=== PATIENT | male | born 1980 | race Caucasian/White ===

== ENCOUNTER 2016-09-30 14:09 | Inpatient (IN) | payer SELFPAY ==
[~2016-09-30] VITALS: Ht 170.2 cm; Wt 78.8 kg
[2016-09-30] VITALS (8 sets, daily range): BP systolic 103–143; BP diastolic 66–81; Ht 170.2 cm; Wt 78.8 kg
[2016-09-30 14:39] LABS: BASOPHILS 0.2 % (0-2); EOSINOPHILS 0.2 % (0-7); HEMOGLOBIN 15.1 g/dL (13.5-17.5); IMMATURE GRANULOCYTES 0.4 % (0-5); LYMPHOCYTES 19.3 % (15-50); MCH 32.8 pg (26.0-34.0); MCHC 35.1 g/dL (31.0-37.0); MCV 93.3 fL (80.0-100.0); MEAN PLATELET VOLUME 10.8 fL (7.4-10.4); MONOCYTES 8.6 % (2-11); NEUTROPHILS 71.3 % (40-80); PLATELET COUNT 185 10x3/uL (130-400); RBC 4.61 10x6/uL (4.20-6.10); RDW 12.5 % (11.5-14.5); WBC 9.9 10x3/uL (4.8-10.8)
[2016-09-30 15:37] LABS: APTT 22.6 SECONDS (22.8-39.4); INR 1.07 (0.85-1.17); PROTIME 13.8 SECONDS (11.6-15.0)
[2016-09-30 15:55] LABS: ALBUMIN 3.6 g/dL (3.4-5.0); ANION GAP 14.6 mmol/L (8-16); BILIRUBIN - TOTAL 0.52 mg/dL (0.2-1.3); CALCIUM 8.6 mg/dL (8.5-10.1); CARBON DIOXIDE 24.7 mmol/L (21.0-32.0); CREATININE - SERUM 1.2 mg/dL (0.6-1.3); POTASSIUM - SERUM 4.3 mmol/L (3.5-5.1); PROTEIN - SERUM 7.1 g/dL (6.4-8.2)
--- NOTE | 2016-09-30 17:22 | NUR ---
1722 LAB HERE TO DRAW BLOOD.
[2016-09-30 17:31] LABS: HEMATOCRIT 40.2 % (42.0-54.0); HEMOGLOBIN 14.1 g/dL (13.5-17.5)
--- NOTE | 2016-09-30 17:58 | NUR ---
ADMIT FROM GI LAB. ASSESSMENT PER FLOWSHEET. VOICES C/O PAIN TO ABDOMEN. 06/26.
--- NOTE | 2016-09-30 19:30 | NUR ---
REPORT REC'D AND CARE REC'D, PT REC'D ON ROOM AIR AWAKE, ALERT, ORIENTED X 4 WITH AT BS, LEFT A/C PIV WITH NS @ 30CC/HR AND PROTONIX @ 10CC/HR, PT REPORTS NO PAIN BUT GENERALIZED FEELING OF NOT FEELING GOOD, CM-SR, BP STABLE, MAEE, ABD SOFT, BS HYPOACTIVE, PT DENIES NEEDS AT THIS TIME, PPP, SR UP X 2, BED IN LOW POSITION, CALL LIGHT IN REACH.
[2016-09-30] MEDS ORDERED: ZANTAC150 MG PO (20:03)
--- NOTE | 2016-09-30 20:30 | NUR ---
ICE WATER AND JELLO PROVIDED ON REQUEST, PT DENIES NAUSEA, COOL CLOTH PROVIDED FOR COMPLAINTS OF BEING "HOT", DENIES FURTHER NEEDS.
--- NOTE | 2016-09-30 21:00 | NUR ---
EVENING MEDS GIVEN, DENIES PAIN OR NEEDS, CALL LIGHT IN REACH.
--- NOTE | 2016-09-30 22:30 | NUR ---
PT ASSISTED UP TO BATHROOM, INSTRUCTED TO CALL FOR ASSISTANCE WHEN FINISHED.
--- NOTE | 2016-09-30 22:45 | NUR ---
PT HAD DARK TARRY STOOL, ASSISTED BACK TO BED AND MONITOR RECONNECTED, PT DENIES PAIN OR NAUSEA.
[2016-09-30 23:21] LABS: HEMATOCRIT 38.4 % (42.0-54.0); HEMOGLOBIN 13.2 g/dL (13.5-17.5)
[2016-10-01] VITALS (15 sets, daily range): BP systolic 99–126; BP diastolic 46–77
--- NOTE | 2016-10-01 | NUR ---
REASSESSMENT COMPELTED, NO CHANGES FROM PREVIOUS STATUS, PT RESTING IN BED ON CELL PHONE, DENIES PAIN OR NEEDS.
--- NOTE | 2016-10-01 | NUR ---
REASSESSMENT COMPLETED, PT RESTING IN BED WATCHING TV, DENIES NEEDS, VSS, WILL MONITOR FOR CHANGES.
--- NOTE | 2016-10-01 02:00 | NUR ---
PT RESTING EYES CLOSED, RESP EVEN AND UNLABORED, VSS, WILL CONT TO MONITOR FOR CHANGES.
--- NOTE | 2016-10-01 03:43 | NUR ---
REASSESSMENT COMPLETED, NO CHANGES FROM PREVIOUS ASSESSMENT, PT DENIES PAIN OR NEEDS.
--- NOTE | 2016-10-01 05:00 | NUR ---
LAB AT BS FOR AM LAB, PT RESTING EYES CLOSED, RESP EVEN AND UNLABORED, VSS.
[2016-10-01 05:10] LABS: BASOPHILS 0.2 % (0-2); EOSINOPHILS 0.5 % (0-7); HEMATOCRIT 36.4 % (42.0-54.0); HEMOGLOBIN 12.7 g/dL (13.5-17.5); IMMATURE GRANULOCYTES 0.2 % (0-5); LYMPHOCYTES 39.4 % (15-50); MCH 32.6 pg (26.0-34.0); MCHC 34.9 g/dL (31.0-37.0); MCV 93.6 fL (80.0-100.0); MEAN PLATELET VOLUME 10.7 fL (7.4-10.4); MONOCYTES 9.7 % (2-11); PLATELET COUNT 165 10x3/uL (130-400); RBC 3.89 10x6/uL (4.20-6.10); RDW 12.9 % (11.5-14.5); WBC 8.4 10x3/uL (4.8-10.8)
[2016-10-01 05:32] LABS: ALBUMIN 3.3 g/dL (3.4-5.0); ALKALINE PHOSPHATASE 40 U/L (46-116); ALT (SGPT) 24 U/L (10-68); BILIRUBIN - TOTAL 0.53 mg/dL (0.2-1.3); CALC OSMOLALITY 284 mosm/kg (275-300); CALCIUM 8.4 mg/dL (8.5-10.1); CARBON DIOXIDE 30.8 mmol/L (21.0-32.0); CHLORIDE - SERUM 105 mmol/L (98-107); CREATININE - SERUM 1.1 mg/dL (0.6-1.3); GLUCOSE 104 mg/dL (74-106); POTASSIUM - SERUM 4.1 mmol/L (3.5-5.1); PROTEIN - SERUM 6.5 g/dL (6.4-8.2); SODIUM 140 mmol/L (136-145); eGFR NON AFRICAN AMERICAN 81 mL/min (90-120)
[2016-10-01 05:38] LABS: UREA NITROGEN 30 mg/dL (7-18)
--- NOTE | 2016-10-01 06:20 | NUR ---
AM MEDS GIVEN, NO VISITORS IN AT THIS TIME, PT DENIES NEEDS, SR UP X 2, BED IN LOW POSITION, CALL LIGHT IN REACH.
--- NOTE | 2016-10-01 07:10 | NUR ---
RECEIVED PT FOR CARE. PT UP AND AMBULATING AROUND ROOM. STEADY GAIT NOTED. PLACED BACK ON ICU MONITORS. NO S/S OF DISTRESS NOTED. CALL LIGHT WITHIN REACH. ASSESSMENT COMPLETED. VSS.
--- NOTE | 2016-10-01 09:20 | NUR ---
PT'S SIGNIFICANT OTHER AT BEDSIDE. UPDATED ON PT'S STATUS.
--- NOTE | 2016-10-01 11:15 | NUR ---
PT RESTING IN BED. CALL LIGHT WITHIN REACH. VSS AT THIS TIME.
--- NOTE | 2016-10-01 13:22 | NUR ---
* Is the patient Alert and Oriented? Yes 0 * PCP Dr. Santnaa 0 * Pharmacy [facility] 0 * Preadmission Environment Home with Family 0 * ADLs Independent 0 * List name and contact numbers for known caregivers / representatives who currently or will assist patient after discharge: Girlfriend - Niurka Madrigal [phone] 0 * Additional services required to return to the preadmission environment? No 0 * Can the patient safely return to the preadmission environment? Yes 0 * Has this patient been hospitalized within the prior 30 days at any hospital? No Patient Name: CECI OREILLY Admission Status: ER Accout number: [id number] Admission Date: 09-30-2016 : 1980 Admission Diagnosis: Attending: JUWAN Current LOS: 1 Anticipated DC Date: 10-02-2016 Planned Disposition: Home Primary Insurance: UNINSURED DISCOUNT PLAN Discharge Planning Comments: CM met with patient to assess dc plans/needs. Patient states he lives with his girlfriend, Niurka Madrigal. He reports he is independent with all ADL's & IADL's. At dc, he will return home - denies any needs at this time. CM will follow & assist as needed. Commercial Property Administrator: Lauren House
--- NOTE | 2016-10-01 14:56 | NUR ---
PT INJECTION MOLDING MACHINE SETTER LIGHT. UPDATED THAT THERE ARE NO BEDS ON MED/SURG AT THIS TIME PER BURN OUT SCARFING OPERATOR. HE VOICED HIS FRUSTRATION. REQUESTING THAT HIS SIGNIFICANT OTHER STAY IN ROOM. INFORMED HIM OF VISITING HOURS. APPOLOGIZED THAT WE COULD NOT ACCOMODATE THIS. HE STATED "I'M GETTING FRUSTRATED AND TIRED OF BEING IN HERE WITH NOTHING TO DO". HE ASKED WHY HE COULD NOT JUST GO HOME. INFORMED HIM THAT THE PHYSICIAN WANTED TO WATCH HIM ANOTHER NIGHT TO MAKE SURE HIS BLOOD COUNT REMAINED STABLE.
--- NOTE | 2016-10-01 16:20 | OP ---
PATIENT NAME: CECI OREILLY MEDICAL RECORD: [id number] :[birth year] LOCATION:[facility] D.CV07 ADMISSION DATE:09/30/16 SURGEON: TRINA ROLON DO DATE OF OPERATION: 09/30/2016 PROCEDURE: EGD with biopsies. INDICATIONS FOR PROCEDURE: Hematemesis, melena and acute blood loss anemia. SCOPE: Olympus video gastroscope. MEDICATIONS: Propofol 200 mg IV per anesthesia. ESTIMATED BLOOD LOSS: Minimal. COMPLICATIONS: None. FINDINGS: Informed consent was given. The patient was made comfortable with the above medication. After reaching an adequate level of sedation by slow IV push, the patient was placed on his left side. The endoscope was then advanced under direct visualization through the mouth to the second portion of the duodenum. The upper, middle, and lower thirds of the esophagus appeared normal. At the GE junction, there was inflammation and evidence of reflux esophagitis, which was not severe. There were no specific ulcerations at the GE junction. The endoscope was advanced into the stomach and retroflexed to view the cardia, which appeared normal. There were patchy areas of erythema and granularity throughout the entire stomach. There were multiple small superficial and linear ulcerations. In the antrum and prepyloric region as well as the pylorus, there were 2 cratered ulcerations, which are likely the main sources of bleeding, if not, the only source. Both of these ulcers had no visible vessels and were not actively bleeding, so no interventions were undertaken. The endoscope was advanced through the pylorus into the duodenum where there was some erythema and granularity within the duodenum, but no ulcerations or other abnormalities which would be bleeding. The scope was then withdrawn back into the stomach and the entire stomach was irrigated and aspirated for a good view of the entire mucosa. The ulcers described above were the only ulcerations seen and the 2 ulcers involving the prepylorus and pylorus are the likely sources of bleeding and are not actively bleeding at this time. The scope was withdrawn from the patient. The patient tolerated the procedure well and there were no complications. IMPRESSION: 1. Gastric ulcers as the source of bleeding. 2. Duodenitis. 3. Gastritis. 4. Reflux esophagitis. PLAN AND RECOMMENDATIONS: 1. Return to floor for further management and monitoring of hemoglobin levels. 2. Recommend IV or oral PPI b.i.d. at 40-mg equivalent for 8 weeks. 3. Carafate suspension 1 g q.i.d. times 2 weeks. 4. Clear liquid diet tonight, followed by a regular diet tomorrow as tolerated. 5. Minimize or avoid all NSAIDs. 6. Consider repeat endoscopy in 8-12 weeks to assure healing of ulcerations and improvement in gastritis and duodenitis as well as esophagitis. 7. Follow up biopsy specimen results and treat if positive for H. pylori. OPERATIVE REPORT [id number] CECI OREILLY TRANSINT:[id number] Voice Confirmation ID: [id number] DOCUMENT ID: [id number] TRINA ROLON DO at 1620 CC: [id number] DICTATION DATE: 09/30/16 170 NAILHEAD SETTER: 09/30/162123 [facility] IN [facility] [address] [place] [address]
--- NOTE | 2016-10-01 16:45 | NUR ---
PT UP AND DRESSED. ASKING TO GO OUTSIDE. INFORMED HIM THAT THAT WAS NOT POSSIBLE. HE IS AGGITATED. GIRLFRIEND AT BEDSIDE AND ASKED TO STEP OUT UNTIL NEXT VISITING TIMES. SHE IS IGNORING THE REQUEST.
--- NOTE | 2016-10-01 19:30 | NUR ---
REPORT REC'D AND CARE ASSUMED, PT LAYING IN BED ON ROOM AIR, AWAKE, ALERT ORIENTED X 4, LEFT A/C PIV SALINE LOCKED, ABD SOFT, BS X 4, CM-SR, PT DENIES PAIN OR NEEDS, SR UP X 2, CALL LIGHT IN REACH, BED IN LOW POSITION.
--- NOTE | 2016-10-01 21:00 | NUR ---
EVENING MEDS GIVEN, NO VISITORS IN AT THIS TIME, DENIES NEEDS.
--- NOTE | 2016-10-01 21:25 | NUR ---
PT TRANSFERRED TO ROOM 2139 VIA WHEELCHAIR, ASSISTED OVER TO BED, SR UP X 2, CALL LIGHT IN REACH, RECEIVING NURSE AT BS.
--- NOTE | 2016-10-01 21:25 | NUR ---
REPORT CALLED TO KAMRAN ON MED II.
[2016-10-02 04:00] VITALS: BP 102/41
[2016-10-02 07:09] LABS: BASOPHILS 0.3 % (0-2); EOSINOPHILS 1.8 % (0-7); HEMATOCRIT 32.3 % (42.0-54.0); HEMOGLOBIN 11.2 g/dL (13.5-17.5); LYMPHOCYTES 30.2 % (15-50); MCH 32.4 pg (26.0-34.0); MCHC 34.7 g/dL (31.0-37.0); MCV 93.4 fL (80.0-100.0); MEAN PLATELET VOLUME 10.6 fL (7.4-10.4); MONOCYTES 8.3 % (2-11); NEUTROPHILS 59.4 % (40-80); RBC 3.46 10x6/uL (4.20-6.10); RDW 12.7 % (11.5-14.5); WBC 6.7 10x3/uL (4.8-10.8)
[2016-10-02 07:18] LABS: PLATELET COUNT 128 10x3/uL (130-400)
[2016-10-02 07:37] LABS: ALBUMIN 3.1 g/dL (3.4-5.0); ALKALINE PHOSPHATASE 36 U/L (46-116); ALT (SGPT) 24 U/L (10-68); CALC OSMOLALITY 289 mosm/kg (275-300); CALCIUM 8.3 mg/dL (8.5-10.1); CARBON DIOXIDE 30.2 mmol/L (21.0-32.0); CHLORIDE - SERUM 109 mmol/L (98-107); GLUCOSE 104 mg/dL (74-106); PROTEIN - SERUM 5.8 g/dL (6.4-8.2); SODIUM 144 mmol/L (136-145); eGFR NON AFRICAN AMERICAN > 90 mL/min (90-120)
[2016-10-02 07:38] LABS: UREA NITROGEN 21 mg/dL (7-18)
[2016-10-02 08:00] VITALS: BP 100/45
--- NOTE | 2016-10-02 08:24 | NUR ---
AM ROUNDING- RECEIVED REPORT FROM CHUCKING AND SAWING MACHINE OPERATOR NURSE KAMRAN. PT IS CURRENTLY LAYING IN BED ON BACK WITH EYES OPEN RESTING. GUEST MEMEBER LAYING BESIDE PT IN BED. ON ROOM AIR. NO MONITOR. IV SEEN TO LEFT AC THAT IS CURRENTLY SALIN LOCKED. PT DENIES ANY BLOODY STOOLS, PT STATES "I DON'T THINK I EVEN HAD A BM YESTERDAY". NO NEED AT CURRENT TIME. WILL CONTINUE TO MONITOR AND CONTINUE WITH PLAN OF CARE.
--- NOTE | 2016-10-02 11:27 | NUR ---
PT IS CURRENTLY WALKING OFF FLOOR. PT IS WITH , PT STATES HE WANTS TO WALK AROUND FOR A LITTLE BIT. I ASKED PT IF HE WAS STAYING ON UNIT, PT REPLIES "YEAH BUT I MAY GO OUTSIDE". I INFORMED PT THAT THE DOCTOR COULD MAKE ROUNDS WHILE HE IS GONE. PT STATES HE UNDERSTANDS.
--- NOTE | 2016-10-02 11:30 | NUR ---
PT BACK TO ROOM WITH .
[2016-10-02 12:00] VITALS: BP 114/63
--- NOTE | 2016-10-02 15:11 | NUR ---
1500- PT IS CURRENTLY WALKING AROUND NURSES STATION WITH . PT DENIES ANY NEED AT THIS TIME. WILL CONTINUE TO MONITOR.
[2016-10-02 16:00] VITALS: BP 133/70
--- NOTE | 2016-10-02 16:12 | NUR ---
UPON CHECKING ON PT IN ROOM, PT STATES "IS MY IV OK". I LOOKED AT WHERE PTS IV CATHETER IS (LEFT AC), WHICH IS BLOODY AROUND CATH SITE UNDER TEGADERM. TRIED TO FLUSH IV CATHETER WHICH DID NOT FLUSH. TOOK IV CATHETER TO LEFT AC OUT WITH CATH TIP INTACT. RESITED PT WITH 20G IV CATHETER TO RIGHT FOREARM X1 STICK. NO FURTHER NEED AT CURRENT TIME. WILL CONTINUE TO MONITOR.
--- NOTE | 2016-10-02 18:45 | NUR ---
PT IS CURRENTLY LAYING IN BED WITH EYES OPEN RESTING. IS AT BEDSIDE. PT DENIES ANY NEED AT THIS CURRENT TIME. WILL CONTINUE TO MONITOR.
[2016-10-02 19:00] VITALS: BP 118/42
--- NOTE | 2016-10-02 20:37 | NUR ---
PT LYING IN BED, AWAKE, ALERT, ORIENTED, FAMILY AT BEDSIDE. PT STATES HE IS HAVING SHARP GENERALIZED ABDOMINAL PAIN, BUT DOES NOT WANT ANY PRN PAIN MEDICATION AT THIS TIME. PT STATES HE DOES NOT WANT IT MASKED IN CASE SOMETHING IS WRONG. BOWELS SOUNDS PRESENT X 4 HYPOACTIVE IN LUQ AND LLQ. PTS ABDOMEN IS MILDLY DISTENDED AND FIRM, NOT RIGID. WILL ENCOURAGE PT TO WALK, DRINK WATER, OFFER PRUNE JUICE, AND CONTINUE TO MONITOR CLOSELY. PT TO CALL WITH ANY CHANGES AND NEEDS. BED LOW, CALL LIGHT IN REACH, SIDE RAILS X 2, HOB 30 DEGREES.
[2016-10-03] VITALS: BP 90/48
[2016-10-03 04:00] VITALS: BP 117/60
--- NOTE | 2016-10-03 05:18 | NUR ---
PT RESTING COMFORTABLY, CONTINUE TO MONITOR CLOSELY.
[2016-10-03 05:46] LABS: BASOPHILS 0.4 % (0-2); EOSINOPHILS 2.5 % (0-7); HEMATOCRIT 30.2 % (42.0-54.0); HEMOGLOBIN 10.7 g/dL (13.5-17.5); LYMPHOCYTES 43.8 % (15-50); MCH 32.9 pg (26.0-34.0); MCHC 35.4 g/dL (31.0-37.0); MCV 92.9 fL (80.0-100.0); MEAN PLATELET VOLUME 11.1 fL (7.4-10.4); MONOCYTES 11.1 % (2-11); NEUTROPHILS 42.2 % (40-80); PLATELET COUNT 133 10x3/uL (130-400); RBC 3.25 10x6/uL (4.20-6.10); RDW 12.6 % (11.5-14.5)
[2016-10-03 05:56] LABS: WBC 4.8 10x3/uL (4.8-10.8)
[2016-10-03 06:08] LABS: ALBUMIN 3.1 g/dL (3.4-5.0); ALKALINE PHOSPHATASE 37 U/L (46-116); ALT (SGPT) 23 U/L (10-68); BILIRUBIN - TOTAL 0.18 mg/dL (0.2-1.3); CALC OSMOLALITY 282 mosm/kg (275-300); CALCIUM 8.5 mg/dL (8.5-10.1); CARBON DIOXIDE 31.6 mmol/L (21.0-32.0); CHLORIDE - SERUM 107 mmol/L (98-107); CREATININE - SERUM 0.9 mg/dL (0.6-1.3); GLUCOSE 92 mg/dL (74-106); SODIUM 141 mmol/L (136-145); UREA NITROGEN 17 mg/dL (7-18); eGFR NON AFRICAN AMERICAN > 90 mL/min (90-120)
[2016-10-03 08:00] VITALS: BP 108/44
--- NOTE | 2016-10-03 08:09 | NUR ---
AM ROUNDING- RECIEVED REPORT FROM SVP RESEARCH AND STRATEGIC ANALYSIS NURSE KAMRAN. PT IS CURRENTLY LAYING IN BED ON BACK WITH EYES OPEN RESTING. PT STATES HE IS HAVING DISCOMFORT FROM ABDOMINAL AREA THAT FEELS LIKE A "CONSTANT PAIN". ON ROOM AIR. NO MONITOR. IV SEEN TO RIGHT FOREARM THAT IS CURRENTLY SALINE LOCKED. WILL CONTINUE TO MONITOR AND CONTINUE WITH PLAN OF CARE.
[2016-10-03 12:00] VITALS: BP 125/75
[2016-10-03 16:00] VITALS: BP 130/70
--- NOTE | 2016-10-03 17:15 | NUR ---
CONSENTS FOR PROCEDDURE SIGNED BY PT AND PLACED IN CHART. PT INSTRUCTED TO REMAIN NOTHING BY MOUTH AFTER MIDNIGHT, PT AGREES. NPO SIGN PLACED ON DOOR.
--- NOTE | 2016-10-03 18:26 | NUR ---
PT IS CURRENTLY SITTING UP IN BED WITH EYES OPEN EATING DINNER THAT BROUGHT. PT IS AWARE TO REMAIN NOTHING BY MOUTH AFTER MIDNIGHT. PT STATES "THEY ARE DOING MY PROCEDURE IN THE MORNING AND THEN HOPEFULLY I CAN GO HOME AFTERWARDS". NO NEED AT THIS CURRENT TIME. WILL CONTINUE TO MONITOR.
[2016-10-03 19:00] VITALS: BP 130/70
--- NOTE | 2016-10-03 21:35 | NUR ---
PT AWAKE, ALERT, ORIENTED, DENIES ANY NEEDS. PT IS C/O MODERATE HEADACHE, STILL HAVING ABD PAIN AND STATED HE DID HAVE 1 DARK AND TARRY STOOL THIS AM. PT IS AWARE OF BEING NPO AFTER MIDNIGHT R/T UPCOMING EGD IN THE AM. PT TO CALL WITH NEEDS OR S/S CHANGES. CONTINUE TO MONITOR CLOSELY. BED LOW, CALL LIGHT IN REACH, SIDE RAILS X 2, HOB 35 DEGREES.
[2016-10-04] VITALS: BP 96/58
[2016-10-04 04:00] VITALS: BP 122/62
[2016-10-04 05:02] LABS: BASOPHILS 0.4 % (0-2); HEMATOCRIT 29.9 % (42.0-54.0); HEMOGLOBIN 10.6 g/dL (13.5-17.5); IMMATURE GRANULOCYTES 0.4 % (0-5); LYMPHOCYTES 46.5 % (15-50); MCH 32.8 pg (26.0-34.0); MCHC 35.5 g/dL (31.0-37.0); MCV 92.6 fL (80.0-100.0); MEAN PLATELET VOLUME 10.3 fL (7.4-10.4); MONOCYTES 8.4 % (2-11); NEUTROPHILS 42.3 % (40-80); PLATELET COUNT 142 10x3/uL (130-400); RBC 3.23 10x6/uL (4.20-6.10); RDW 12.4 % (11.5-14.5)
[2016-10-04 05:42] LABS: ALBUMIN 3.1 g/dL (3.4-5.0); ALKALINE PHOSPHATASE 35 U/L (46-116); ALT (SGPT) 26 U/L (10-68); CALC OSMOLALITY 281 mosm/kg (275-300); CALCIUM 8.4 mg/dL (8.5-10.1); CARBON DIOXIDE 31.3 mmol/L (21.0-32.0); CHLORIDE - SERUM 105 mmol/L (98-107); GLUCOSE 99 mg/dL (74-106); POTASSIUM - SERUM 4.1 mmol/L (3.5-5.1); PROTEIN - SERUM 5.9 g/dL (6.4-8.2); SODIUM 141 mmol/L (136-145); UREA NITROGEN 14 mg/dL (7-18); eGFR NON AFRICAN AMERICAN > 90 mL/min (90-120)
--- NOTE | 2016-10-04 06:34 | NUR ---
PT RESTING COMFORTABLY, EASILY ROUSABLE TO VERBAL STIMULI, DENIES ANY NEEDS. PT STATES HE HAS NOT HAD ANY MORE BLACK TARRY STOOLS THIS SHIFT. CONTINUE TO MONITOR CLOSELY.
--- NOTE | 2016-10-04 07:15 | NUR ---
REPORT RECIVED. PT RESTING QUIETLY, FAMILY AT BEDISDE. PT DENIES NEEDS, WILL BE TAKEN TO SURGERY THIS MORNING FOR EGD. WILL CTM.
[2016-10-04 08:00] VITALS: BP 124/75
--- NOTE | 2016-10-04 08:27 | NUR ---
PT RECIEVED TO ROOM FROM PROCEDURE. PT ALERT AND ORIENTED, RR EVEN AND UNLABORED, VSS. NO SIGNS OF DISTRESS. FAMILY AT BEDSIDE, WILL CTM.
--- NOTE | 2016-10-04 08:48 | OP ---
PATIENT NAME: CECI OREILLY MEDICAL RECORD: [id number] :82 LOCATION:D.M2 D.2139 ADMISSION DATE:09/30/16 SURGEON: TRINA ROLON DO DATE OF OPERATION: 10/04/2016 PROCEDURE: EGD. INDICATIONS: Followup of gastric ulcers and positive H. pylori biopsies from endoscopy within the past week. The patient has had continued drop in hemoglobin and continued abdominal pain. SCOPE: Olympus video gastroscope. MEDICATIONS: Propofol 150 mg IV per anesthesia. ESTIMATED BLOOD LOSS: None. COMPLICATIONS: None. FINDINGS: Informed consent was given. The patient was made comfortable with the above medication. After reaching an adequate level of sedation by slow IV push, the patient was placed on his left side. The endoscope was advanced under direct visualization through the mouth to the second portion of the duodenum. The whole esophagus appeared normal. Retroflexion was performed within the stomach to view the cardia and fundus which appeared normal. In the body, antrum, prepyloric region, and involving the pylorus, there were multiple ulcerations. Some were linear and superficial. Others were deeper ulcerations. All appeared to be healing and had clean bases without evidence of current or recent bleeding. The endoscope was advanced beyond the pylorus into the duodenum where there was some mild duodenitis noted in the bulb, but the second portion of the duodenum appeared normal. The scope was withdrawn from the patient. The patient tolerated the procedure well and there were no complications. IMPRESSION: 1. Multiple gastric ulcerations, which appear to be healing and are clean based. No interventions were performed: 2. Positive Helicobacter pylori on biopsies earlier this week. PLAN AND RECOMMENDATIONS: 1. Okay to resume diet and discharge home from GI standpoint. 2. Recommend b.i.d. PPI at 40 mg equivalent times 8 weeks. 3. Carafate suspension or dissolved tablets 4 times daily for 7 more days. 4. The patient will need treatment of his H. pylori for 14 days upon his discharge. 5. We will plan for a repeat endoscopy as an outpatient in 8-12 weeks to document healing of ulcerations and rebiopsy to confirm that H. pylori has been eradicated. TRANSINT:[id number] Voice Confirmation ID: [id number] DOCUMENT ID: [id number] OPERATIVE REPORT [id number] CECI OREILLY TRINA ROLON DO at 0848 CC: [id number] DICTATION DATE: 10/04/16 0808 CHIEF SCIENCE OFFICER: 10/04/16 0831 ADM IN [facility] [address] [place] [address]
--- NOTE | 2016-10-04 11:07 | NUR ---
DISCHARGE ORDER IN. VS REMAINED STABLE POST PROCEDURE. RR EVEN AND UNLABORED, WILL CTM UNTIL D/C.
[2016-10-04] MEDS ORDERED: PROTONIX40 MG PO (12:20)
[2016-10-04] MEDS ORDERED: PREVPAC PA1 COMB.PKG PO (12:21)
[2016-10-04] MEDS ORDERED: CARAFATE1 G/10 ML PO (12:21)
--- NOTE | 2016-10-04 14:18 | NUR ---
PT DISCHARGED. D/C INSTRUCTIONS PROVIDED, PT VERBALIZED UNDERSTANDING. IV CATHETER REMOVED WITH CATHETER TIP INTACT. WILL GO HOME WITH IN PERSONAL VEHCILE, ESCORTED PT DOWNSTAIRS.
--- NOTE | 2016-10-05 17:14 | DS ---
PATIENT:CECI OREILLY :82 MEDICAL RECORD: [id number] DISCHARGE SUMMARY ADMISSION DATE: 09/30/16 DISCHARGE DATE: 10/04/16 DATE OF ADMISSION: 09/30/2016 DATE OF DISCHARGE: 10/04/2016 ADMITTING DIAGNOSES: Upper gastrointestinal bleed, hematemesis. 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 Details are well-outlined in the history of the present illness, H&P. All events, lab procedures, and diagnostic testing are well documented in the records. The patient was admitted to the intensive care unit, placed on serial H&H, Protonix drip, SCDs for DVT prophylaxis. CONSULTANTS: Dr. Blue, gastroenterology. His recommendations were followed. The patient was taken to the GI lab. He was found to have multiple gastric ulcers, two of which were deep cratered in the prepylorus and pylorus as the source of bleeding. Please refer to his report. He tolerated the procedure well, was awakened and taken to the recovery room in stable condition. He was brought in ICU, stabilized and transferred out to the floor. He remained symptomatic with dizziness, some abdominal pain, admission hemoglobin 15, dwindled down to 10.7 yesterday, was taken back to the GI lab today where another EGD was done, it revealed multiple healing ulcers, no intervention performed. His H. pylori cultures did end up being positive. He is stable for dismissal home today. He is to be on twice a day Protonix at 40 mg for 8 weeks. Carafate suspension 4 times a day for 7 more days and treatment of H. pylori. He is stable for dismissal home. PHYSICAL EXAMINATION: VITAL SIGNS: He is afebrile, pulse 70, respirations 18, blood pressure 124/75. LABORATORY DATA: White count 5, hemoglobin 10.6, platelets are 142. Sodium 141, potassium 4.1, chloride 105, CO2 of 31, BUN 14, serum creatinine 1, blood sugar 99. DISCHARGE DIAGNOSES: 1. Upper gastrointestinal bleed, hematemesis. 2. Multiple healed gastric ulcers. 3. Upper gastrointestinal bleed secondary to #1. 4. Positive Helicobacter pylori. DISCHARGE INSTRUCTIONS: He will follow up with Dr. Mohr in a week. He will follow up with Dr. Gao. Greater than 30 minutes was spent on this discharge. TRANSINT:[id number] Voice Confirmation ID: [id number] DOCUMENT ID: [id number] Dictated By: RACHEL WATT RN I have interviewed/examined the above patient and agree with these documented findings. DISCHARGE SUMMARY REPORT [id number] CECI OREILLY AMY MD at 1714 CC: [id number] DICTATION DATE: 10/04/16 122 MANAGER OPERATIONS AND PROCUREMENT: 10/05/16 0408 DIS IN 10/04/16 [facility] [address] [place] [address]
== END 2016-10-04 14:20 | disposition home or self-care (01) | DRG 378 ==
LOC: D.ER 14:09 → D.CVICU 17:20 → D.ICU 17:20 → D.M2 17:20 → D.CVICU 17:43 → D.M2 10-01 21:40 → D.CLR 10-02 15:17 → D.M2 10-02 15:18
PROVIDERS: Emergency Medicine; Internal Medicine Gastroenterology; Physician Assistant Medical; ADMIT Emergency Medicine
PROC: 0DB68ZX Excision of Stomach, Via Natural or Artificial Opening Endoscopic, Diagnostic (ICD-10-PCS; principal; 2016-09-30 16:30)
PROC: 0DJ08ZZ Inspection of Upper Intestinal Tract, Via Natural or Artificial Opening Endoscopic (ICD-10-PCS; 2016-10-04)
DX: K25.0 Acute gastric ulcer with hemorrhage (principal); D62 Acute posthemorrhagic anemia; K29.80 Duodenitis without bleeding; K29.70 Gastritis, unspecified, without bleeding; K21.0 Gastro-esophageal reflux disease with esophagitis; F10.10 Alcohol abuse, uncomplicated; B96.81 Helicobacter pylori [H. pylori] as the cause of diseases classified elsewhere